=== PATIENT | female | born 1985 | race Two or more races ===

== ENCOUNTER → 2022-10-09 | Day surgery (SDC) | payer OTHER ==
[~2022-10-09] MED LIST: ADVAIR 2501 DISK W/1 IH; CEFADROXIL500 MG PO; GILTUSS HC SYR473 ML PO; KETO10TA2 PO; PROVENTIL3 ML/2.5 M IH; SINGULAIR10 MG PO
== END | disposition home or self-care (01) ==
LOC: ADM 10-08 14:15 → CIR.AMB 10:21
PROVIDERS: ATTEND Obstetrics & Gynecology
DX: O02.1 Missed abortion (principal); Z20.822 Contact with and (suspected) exposure to COVID-19